=== PATIENT | male | born 1985 | race American Indian/Alaskan Native ===

== ENCOUNTER 2017-05-19 13:24 | Emergency (ER) | payer MEDICARE, MEDICAID ==
[2017-05-19 13:32] VITALS: BP 131/83; PULSE 76; RESP 18; TEMP 97; O2SAT 98
--- NOTE | 2017-05-19 14:38 | ED PDOC ---
HPI: General Adult Time Seen by Provider: 05/19/17 13:48 Chief Complaint (Nursing): Dental Pain Chief Complaint (Provider): Lip irritation, Right calf pain History Per: Patient History/Exam Limitations: no limitations Current Symptoms Are (Timing): Still Present Additional Complaint(s): Norman Simmons is a 31 y/o male who presents to the emergency department for evaluation of lip irritation and calf pain. Patient states for the past 1.5 months, hes had pruritus and irritation around lip region. States he has been using doxycycline for 1 week, with no relief of symptoms. Also states 3 days ago he was skateboarding and pushing off with his right leg, when he suddenly felt pain in the right calf. Has had pain with walking since. Denies blunt trauma. PMD: Non-[facility] Provider Past Medical History Reviewed: Historical Data, Nursing Documentation, Vital Signs Vital Signs: Last Vital Signs Temp 97 F L 05/19/17 13:29 Pulse 76 05/19/17 13:29 Resp 18 05/19/17 13:29 BP 131/83 05/19/17 13:29 Pulse Ox 98 05/19/17 14:44 - Family History Family History: States: Unknown Family Hx - Home Medications Home Medications: Ambulatory Orders Medication Instructions Recorded Erythromycin Base/Ethanol 1 appl TP BID #60 gel..gram. 05/19/17 [Erythromycin 2% Gel] - Allergies Allergies/Adverse Reactions: Allergies Allergy/AdvReac Type Severity Reaction Status Date / Time No Known Allergies Allergy Verified 05/19/17 13:29 Review of Systems ROS Statement: Except As Marked, All Systems Reviewed And Found Negative Musculoskeletal: Positive for: Other (right calf pain, + pain on walking) Skin: Positive for: Other (pruritus and irritation to bilateral lips) Physical Exam - Reviewed Nursing Documentation Reviewed: Yes Vital Signs Reviewed: Yes - Physical Exam Appears: Positive for: Non-toxic, No Acute Distress Head Exam: Positive for: ATRAUMATIC, NORMOCEPHALIC Skin: Positive for: Normal Color (with mild excoriations and maceration noted to bilateral lower lip region. No vesicles) Eye Exam: Positive for: EOMI, Normal appearance, PERRL ENT: Positive for: Normal ENT Inspection Extremity: Positive for: Normal ROM, Other (Full ROM actively of right knee and ankle, negative Negro test). Negative for: Tenderness, Calf Tenderness Neurologic/Psych: Positive for: Alert, Oriented - ECG O2 Sat by Pulse Oximetry: 98 (RA) Pulse Ox Interpretation: Normal Medical Decision Making Medical Decision Making: Clinical Impression: Right calf strain, Rash Time: 14:12 Plan: Will d/c with erythromycin gel to apply topically. Patient counseled regarding diagnosis and advised to follow up with optical systems engineer for further evaluation. There is agreement to discharge plan. Return if symptoms persist or worsen. Scribe Attestation: Documented by Lizet Garcia, acting as a scribe for Jonas Ding PA-C Provider Scribe Attestation: All medical record entries made by the Scribe were at my direction and personally dictated by me. I have reviewed the chart and agree that the record accurately reflects my personal performance of the history, physical exam, medical decision making, and the department course for this patient. I have also personally directed, reviewed, and agree with the discharge instructions and disposition. Disposition - Clinical Impression Clinical Impression: Rash, Strain of calf muscle - Patient ED Disposition Is Patient to be Admitted: No Counseled Patient/Family Regarding: Diagnosis, Need For Followup, Rx Given - Disposition Referrals: Delia Hunt [Outside] Disposition: Routine/Home Disposition Time: 14:25 Condition: STABLE Prescriptions: Erythromycin Base/Ethanol [Erythromycin 2% Gel] 1 appl TP BID #60 gel..gram. Instructions: Musculoskeletal Pain (ED) Forms: [employer] (U[place]ayan) Print Language: KYRGYZ - POA Present On Arrival: None
== END 2017-05-19 14:42 | disposition home or self-care (01) ==
LOC: H.ER 13:24
DX: R21 Rash and other nonspecific skin eruption (principal)